=== PATIENT | male | born 1965 | race Caucasian/White ===

== ENCOUNTER 2017-09-13 17:11 | Emergency (ER) | payer OTHER ==
[~2017-09-13] VITALS: Ht 175.3 cm; Wt 76.1 kg
[2017-09-13 17:13] VITALS: BP 135/85
== END 2017-09-13 18:23 | disposition home or self-care (01) ==
LOC: ED 18:17
DX: S16.1XXA Strain of muscle, fascia and tendon at neck level, initial encounter (principal); E78.5 Hyperlipidemia, unspecified; E11.9 Type 2 diabetes mellitus without complications; I10 Essential (primary) hypertension; V59.09XA Driver of pick-up truck or van injured in collision with other motor vehicles in nontraffic accident, initial encounter; Y93.89 Activity, other specified; Y99.8 Other external cause status; Y92.89 Other specified places as the place of occurrence of the external cause
CPT/HCPCS: 72050; 99284